=== PATIENT | male | born 1945 | race Caucasian/White ===

== ENCOUNTER 2018-02-10 12:11 | Inpatient (IN) ==
--- NOTE | 2018-02-10 13:13 | ED ---
HPI General Chief Complaint: Chest Pain Stated Complaint: chest pain/tightness Time Seen by Provider: 02/10/18 12:43 Source: patient and RN notes reviewed Mode of arrival: ambulatory Limitations: no limitations History of Present Illness HPI narrative: 72 year old male presents to the emergency department for evaluation of chest pain that started around 11am today. He went to [employer] and after he got home, he sat down for approximately 10 mins and started with midsternal chest pain, that he describes as sharp and tight without radiating. He states he took a nitro which took his pain away, but it has since returned, but more mild. Pain is currently a 3/10. His marketing traffic manager is Dr. Urbano. He states that he had a stress test done earlier this week. He states Dr. Urbano told him that he needed to have another cardiac catherization. He reports history of cardiac stent, DM, hyperlipidemia. He is on ASA 81 mg daily , no other anticoagulants. He did take his ASA this morning. He denies any fevers, chills, SOB, abdominal pain, nausea, vomiting, diarrhea, cough, congestion. Moderate severity. He states that he was recently started back on metoprolol and isosorbide. MD complaint: Reports chest pain STEMI Alert: No Onset (ago): hour(s) (2) Time: 11:00 Duration: constant and improved Onset: during rest Pain location: Reports substernal Severity: moderate Severity scale (1-10): 3 Quality: Reports tightness and sharp Pain radiation: Reports none Related Data Home Medications Medication Instructions Recorded Confirmed atorvastatin 80 mg PO DAILY 02/10/18 02/10/18 gabapentin 100 mg PO TID 02/10/18 02/10/18 lisinopril-hydrochlorothiazide 1 tab PO DAILY 02/10/18 02/10/18 omeprazole 20 mg PO DAILY 02/10/18 02/10/18 ascorbic acid (vitamin C) [Vitamin 500 mg PO DAILY 02/11/18 02/11/18 C] loratadine 10 mg PO HS 02/11/18 02/11/18 multivitamin [Multiple Vitamins] 1 tab PO DAILY 02/11/18 02/11/18 naproxen 500 mg PO BID PRN 02/11/18 02/11/18 nitroglycerin 0.4 mg SUBLINGUAL Q5-15M PRN 02/11/18 02/11/18 Previous Rx's Medication Instructions Recorded aspirin 81 mg PO DAILY #30 tab 02/11/18 isosorbide mononitrate 120 mg PO DAILY@0700 #60 tab 02/11/18 metformin 500 mg PO DAILY #0 tab 02/11/18 Allergies Allergy/AdvReac Type Severity Reaction Status Date / Time penicillin G Allergy Severe Hives Verified 02/10/18 12:35 Review of Systems ROS: all other systems reviewed are negative [facility] Medical History Medical History Diabetes (Acute) HBP (high blood pressure) (Acute) High cholesterol (Acute) Hx of cataract (Acute) Surgical History Surgical History History of heart artery stent (Acute) History of knee surgery (Acute) Social History Social History Substance History: No History of Abuse Second Hand Smoke Exposure: No Smoking Status: Former smoker Tobacco Type: Cigarettes How Often Do You Have a Drink Containing Alcohol: Monthly or less Recent Travel in [facility] within the Last 8 Weeks: Yes Recent Out of Country Travel within the Last 8 Weeks: No Immunization History Tetanus Immunization: <5 Years Exam Narrative Exam Narrative: GENERAL: Well-nourished, well-developed male patient, afebrile. SKIN: Focused skin assessment warm/dry. HEAD: Normocephalic. Atraumatic EYES: No scleral icterus. No injection or drainage. NECK: Supple, trachea midline. No JVD or lymphadenopathy. CARDIOVASCULAR: Regular rate and rhythm without murmurs, gallops, or rubs. Bilateral radial and pedal pulses are 2+ RESPIRATORY: Breath sounds equal bilaterally. No accessory muscle use. Lung sounds are clear to auscultation GASTROINTESTINAL: Abdomen soft, non-tender, nondistended. MUSCULOSKELETAL: No cyanosis, or edema. BACK: Nontender without obvious deformity. No CVA tenderness. Course Initial Documented Vital Signs Temperature 98.2 F 02/10/18 12:19 Pulse Rate 50 L 02/10/18 12:19 Respiratory Rate 20 02/10/18 12:19 Blood Pressure 175/77 H 02/10/18 12:19 Pulse Oximetry 95 02/10/18 12:19 Last Documented Vital Signs Temperature 97.8 F 02/11/18 08:00 Pulse Rate 48 L 02/11/18 08:00 Respiratory Rate 16 02/11/18 08:00 Blood Pressure 151/82 H 02/11/18 08:00 Pulse Oximetry 99 02/11/18 11:54 Medical Decision Making MDM Narrative Medical decision making narrative: 72 year old male presents to the emergency department for evaluation of chest pain that started today at 1100. EKG shows sinus bradycardia, HR 47, no acute ST changes. IV access is established. CBC, CMP, CK, Troponin, CK, magnesium, PTT, PT/INR, chest x-ray are ordered and pending. Patient is given ASA 81 mg PO, nitro 0.4 mg SL. CBC is unremarkable. CMP shows no acute abnormality. CK is 89. Troponin is less than 0.02. Magnesium is 2.0. PTT is 26.1. PT/INR is 10.4/1.0. Chest x- ray shows stable chest without evidence of acute process. Dr. Urbano, marketing traffic manager, is paged. Dr. Castillo is senior contracts manager. She agrees with admission for repeat Sudhakar and EKGs and consult to Dr. Urbano. Patient agrees to this. Medical Screen Exam Complete: Yes Emergency Medical Condition: Yes Differential Diagnosis Differential Diagnosis: ACS vs. angina vs. pneumonia vs. pneumothorax Medical Records Medical records reviewed: Yes I reviewed the patient's medical records. Lab Data Result diagrams: 02/11/18 03:24 02/11/18 03:24 Lab Results 02/10/18 02/10/18 02/10/18 Range/Units 12:50 14:00 14:00 WBC 6.0 (4.0-11.0) th/mm3 RBC 4.03 L (4.50-5.90) mil/mm3 Hgb 13.2 (13.0-17.0) gm/dL Hct 38.5 L (39.0-51.0) % MCV 95.7 (80.0-100.0) fL MCH 32.8 (27.0-34.0) pg MCHC 34.3 (32.0-36.0) % RDW 13.9 (11.6-17.2) % Plt Count 176 (150-450) th/mm3 MPV 11.0 (7.0-11.0) fL Neut % (Auto) 63.1 (16.0-70.0) % Lymph % (Auto) 21.7 (9.0-44.0) % Lipscomb % (Auto) 9.9 H (0.0-8.0) % Eos % (Auto) 4.7 H (0.0-4.0) % Baso % (Auto) 0.6 (0.0-2.0) % Neut # (Auto) 3.8 (1.8-7.7) th/mm3 Lymph # (Auto) 1.3 (1.0-4.8) th/mm3 Lipscomb # (Auto) 0.6 (0.0-0.9) th/mm3 Eos # (Auto) 0.3 (0.0-0.4) th/mm3 Baso # (Auto) 0.0 (0.0-0.2) th/mm3 WBC Differential . Differential Comment Auto diff final PT 10.4 (9.8-11.6) sec INR 1.0 Ratio APTT 26.1 (23.4-31.7) sec Sodium 140 (136-145) meq/L Potassium 3.9 (3.5-5.1) meq/L Chloride 106 (98-107) meq/L Carbon Dioxide 25.0 (21.0-32.0) meq/L Anion Gap 9 (5-15) meq/L BUN 19 H (7-18) mg/dL Creatinine 1.06 (0.60-1.30) mg/dL Estimated GFR 69 L (>89) mL/min POC Glucose (68-110) mg/dl Random Glucose 128 H (74-106) mg/dL Calcium 8.0 L (8.5-10.1) mg/dL Magnesium 2.0 (1.5-2.5) mg/dL Total Bilirubin 0.4 (0.2-1.0) mg/dL AST 20 (15-37) U/L ALT 28 (12-78) U/L Alkaline Phosphatase 87 (45-117) U/L Total Creatine Kinase 89 (39-308) U/L Troponin I Less than 0.02 L (0.02-0.05) ng/mL Total Protein 6.6 (6.4-8.2) g/dL Albumin 3.4 (3.4-5.0) g/dL 02/10/18 02/10/18 02/10/18 Range/Units 18:16 19:56 20:23 WBC (4.0-11.0) th/mm3 RBC (4.50-5.90) mil/mm3 Hgb (13.0-17.0) gm/dL Hct (39.0-51.0) % MCV (80.0-100.0) fL MCH (27.0-34.0) pg MCHC (32.0-36.0) % RDW (11.6-17.2) % Plt Count (150-450) th/mm3 MPV (7.0-11.0) fL Neut % (Auto) (16.0-70.0) % Lymph % (Auto) (9.0-44.0) % Lipscomb % (Auto) (0.0-8.0) % Eos % (Auto) (0.0-4.0) % Baso % (Auto) (0.0-2.0) % Neut # (Auto) (1.8-7.7) th/mm3 Lymph # (Auto) (1.0-4.8) th/mm3 Lipscomb # (Auto) (0.0-0.9) th/mm3 Eos # (Auto) (0.0-0.4) th/mm3 Baso # (Auto) (0.0-0.2) th/mm3 WBC Differential Differential Comment PT (9.8-11.6) sec INR Ratio APTT (23.4-31.7) sec Sodium (136-145) meq/L Potassium (3.5-5.1) meq/L Chloride (98-107) meq/L Carbon Dioxide (21.0-32.0) meq/L Anion Gap (5-15) meq/L BUN (7-18) mg/dL Creatinine (0.60-1.30) mg/dL Estimated GFR (>89) mL/min POC Glucose 93 142 H (68-110) mg/dl Random Glucose (74-106) mg/dL Calcium (8.5-10.1) mg/dL Magnesium (1.5-2.5) mg/dL Total Bilirubin (0.2-1.0) mg/dL AST (15-37) U/L ALT (12-78) U/L Alkaline Phosphatase (45-117) U/L Total Creatine Kinase 84 (39-308) U/L Troponin I Less than 0.02 L (0.02-0.05) ng/mL Total Protein (6.4-8.2) g/dL Albumin (3.4-5.0) g/dL 02/10/18 02/11/18 02/11/18 Range/Units 23:20 03:24 03:24 WBC 5.7 (4.0-11.0) th/mm3 RBC 3.98 L (4.50-5.90) mil/mm3 Hgb 12.8 L (13.0-17.0) gm/dL Hct 37.0 L (39.0-51.0) % MCV 93.0 (80.0-100.0) fL MCH 32.1 (27.0-34.0) pg MCHC 34.6 (32.0-36.0) % RDW 13.9 (11.6-17.2) % Plt Count 123 L D (150-450) th/mm3 MPV 11.2 H (7.0-11.0) fL Neut % (Auto) 62.0 (16.0-70.0) % Lymph % (Auto) 23.4 (9.0-44.0) % Lipscomb % (Auto) 9.4 H (0.0-8.0) % Eos % (Auto) 4.7 H (0.0-4.0) % Baso % (Auto) 0.5 (0.0-2.0) % Neut # (Auto) 3.5 (1.8-7.7) th/mm3 Lymph # (Auto) 1.3 (1.0-4.8) th/mm3 Lipscomb # (Auto) 0.5 (0.0-0.9) th/mm3 Eos # (Auto) 0.3 (0.0-0.4) th/mm3 Baso # (Auto) 0.0 (0.0-0.2) th/mm3 WBC Differential . Differential Comment Auto diff final PT (9.8-11.6) sec INR Ratio APTT (23.4-31.7) sec Sodium 142 (136-145) meq/L Potassium 4.0 (3.5-5.1) meq/L Chloride 107 (98-107) meq/L Carbon Dioxide 29.2 (21.0-32.0) meq/L Anion Gap 6 (5-15) meq/L BUN 16 (7-18) mg/dL Creatinine 0.96 (0.60-1.30) mg/dL Estimated GFR 77 L (>89) mL/min POC Glucose (68-110) mg/dl Random Glucose 106 (74-106) mg/dL Calcium 8.5 (8.5-10.1) mg/dL Magnesium (1.5-2.5) mg/dL Total Bilirubin (0.2-1.0) mg/dL AST (15-37) U/L ALT (12-78) U/L Alkaline Phosphatase (45-117) U/L Total Creatine Kinase 69 (39-308) U/L Troponin I Less than 0.02 L (0.02-0.05) ng/mL Total Protein (6.4-8.2) g/dL Albumin (3.4-5.0) g/dL 02/11/18 Range/Units 07:29 WBC (4.0-11.0) th/mm3 RBC (4.50-5.90) mil/mm3 Hgb (13.0-17.0) gm/dL Hct (39.0-51.0) % MCV (80.0-100.0) fL MCH (27.0-34.0) pg MCHC (32.0-36.0) % RDW (11.6-17.2) % Plt Count (150-450) th/mm3 MPV (7.0-11.0) fL Neut % (Auto) (16.0-70.0) % Lymph % (Auto) (9.0-44.0) % Lipscomb % (Auto) (0.0-8.0) % Eos % (Auto) (0.0-4.0) % Baso % (Auto) (0.0-2.0) % Neut # (Auto) (1.8-7.7) th/mm3 Lymph # (Auto) (1.0-4.8) th/mm3 Lipscomb # (Auto) (0.0-0.9) th/mm3 Eos # (Auto) (0.0-0.4) th/mm3 Baso # (Auto) (0.0-0.2) th/mm3 WBC Differential Differential Comment PT (9.8-11.6) sec INR Ratio APTT (23.4-31.7) sec Sodium (136-145) meq/L Potassium (3.5-5.1) meq/L Chloride (98-107) meq/L Carbon Dioxide (21.0-32.0) meq/L Anion Gap (5-15) meq/L BUN (7-18) mg/dL Creatinine (0.60-1.30) mg/dL Estimated GFR (>89) mL/min POC Glucose 115 H (68-110) mg/dl Random Glucose (74-106) mg/dL Calcium (8.5-10.1) mg/dL Magnesium (1.5-2.5) mg/dL Total Bilirubin (0.2-1.0) mg/dL AST (15-37) U/L ALT (12-78) U/L Alkaline Phosphatase (45-117) U/L Total Creatine Kinase (39-308) U/L Troponin I (0.02-0.05) ng/mL Total Protein (6.4-8.2) g/dL Albumin (3.4-5.0) g/dL Imaging Data Radiologist's impression: Chest X-Ray 02/10/18 12:51 CONCLUSION: Stable chest without evidence of acute process. Discharge Plan Discharge Disposition Patient Disposition: 30 Still Patient Discharge Condition Condition: Stable Discharge Order Discharge Orders: Discharge Order (Routine); Ordered 02/11/18 Ordered By: Lorraine Taylor Cardiology Clear for Discharge (Routine); Ordered 02/11/18 Ordered By: Eric Vazquez Discharge Details Anticipated Discharge Date: 02/11/18 Discharge Comment: Followup with Dr. Urbano at previously scheduled appt on . Followup with your PCP in 7-10 days, call for that appt. Diagnosis: Chest pain Physicians Team ED Provider: Guille Mariscal ED Midlevel Provider: Delores Salter Primary Care Provider: [facility] [place] Attending Provider: Andrea Guzman Other Providers: Wing Daisy Castillo Status ED Status: Left Department Discharge Information Discharge Date/Time: 02/10/18 17:00
--- NOTE | 2018-02-10 13:16 | XR ---
EXAM DATE: 02/10/2018 1:09 PM EST AGE/SEX: 72 years / Male INDICATIONS: Shortness of breath and chest pain. CLINICAL DATA: This is the patient's initial encounter. Patient reports that signs and symptoms have been present for 1 day and indicates a pain score of 4/10. MEDICAL/SURGICAL HISTORY: Diabetes. Hypertension. Coronary artery disease. . Cardiac stent. COMPARISON: [facility] [place], CHEST SINGLE AP, 02/05/2011. . FINDINGS: A single AP view of the chest demonstrates the lungs to be symmetrically aerated without evidence of mass, infiltrate or effusion. Calcified hilar lymph nodes are again noted. The cardiomediastinal str uctures are otherwise unremarkable. Osseous structures are intact. CONCLUSION: Stable chest without evidence of acute process. Electronically signed by: Eladio Kaufman MD 02/10/2018 1:15 PM EST
[2018-02-10 13:31] LABS: Baso % (Auto) 0.6 % (0.0-2.0); Eos # (Auto) 0.3 th/mm3 (0.0-0.4); Eos % (Auto) 4.7 % (0.0-4.0); Hematocrit 38.5 % (39.0-51.0); Hemoglobin 13.2 gm/dL (13.0-17.0); Lymph # (Auto) 1.3 th/mm3 (1.0-4.8); Lymph % (Auto) 21.7 % (9.0-44.0); Mean Corpuscular HGB Conc 34.3 % (32.0-36.0); Mean Corpuscular Hemoglobin 32.8 pg (27.0-34.0); Mean Corpuscular Volume 95.7 fL (80.0-100.0); Mono # (Auto) 0.6 th/mm3 (0.0-0.9); Mono % (Auto) 9.9 % (0.0-8.0); Neut # (Auto) 3.8 th/mm3 (1.8-7.7); Neut % (Auto) 63.1 % (16.0-70.0); Platelet Count 176 th/mm3 (150-450); Red Blood Count 4.03 mil/mm3 (4.50-5.90); Red Cell Distribution Width 13.9 % (11.6-17.2)
[2018-02-10 14:19] LABS: Activated Partial Thrombo Time 26.1 sec (23.4-31.7); Prothrombin Time 10.4 sec (9.8-11.6)
[2018-02-10 14:51] LABS: Alanine Aminotransferase 28 U/L (12-78); Albumin 3.4 g/dL (3.4-5.0); Anion Gap 9 meq/L (5-15); Aspartate Aminotransferase 20 U/L (15-37); Blood Urea Nitrogen 19 mg/dL (7-18); Chloride 106 meq/L (98-107); Glomerular Filtration Rate 69 mL/min (>89); Glucose,Random 128 mg/dL (74-106); Potassium 3.9 meq/L (3.5-5.1); Sodium 140 meq/L (136-145)
[2018-02-10 14:55] LABS: Alkaline Phosphatase 87 U/L (45-117); Total Protein 6.6 g/dL (6.4-8.2)
[2018-02-10 14:58] LABS: Creatine Kinase 89 U/L (39-308)
[2018-02-10] MEDS ORDERED: Iohexol 350 MG/ML 100 ML Vial (for Cath Lab) IVCONTRAST ONE (15:37)
[2018-02-10] MEDS ORDERED: Acetaminophen 325 MG Tablet PO PRN (16:19)
[2018-02-10] MEDS ORDERED: Dextrose 50% in Water 50 ML Vial IV.PUSH PRN (16:27)
--- NOTE | 2018-02-10 16:55 | P.HPIM ---
History of Present Illness Primary Care Physician: [facility] History of Present Illness: Pt is 72 yo with cad, hx stent in "90s", c in 2012 with occluded lad with collaterals. Pt says over past 4 weeks having more ant cp/epigastric pain mostly with exertion but also at rest. no n/v, no diaphoresis. Maybe mild sob. has seen Dr Urbano who did a treadmill test in office with no ekg changes. Pt was started on metoprolol and imdur. Pain can also subside with rest. sharp in nature but also some pressure. Today pain would not subside but later it did with ntg. He says Dr Urbano was planning [facility] if pain persisted. PMH cad. stent. lad occlusion with collaterals . last [facility] 2012 prostate ca. s/p external beam radiation dm 2 htn hyperlipidemia left knee arthroscopic surgery left inguinal hernia. then redo surgery. gerd sh: no etoh/tob fh: NC Diagnosis (1) Diabetes: (2) HTN (hypertension): (3) CAD (coronary artery disease): (4) Chest pain: Medications and Allergies Allergies Allergy/AdvReac Type Severity Reaction Status Date / Time penicillin G Allergy Severe Hives Verified 02/10/18 12:35 Home Medications Medication Instructions Recorded Confirmed Type aspirin 81 mg PO DAILY 02/10/18 02/10/18 History atorvastatin 80 mg PO DAILY 02/10/18 02/10/18 History gabapentin 100 mg PO TID 02/10/18 02/10/18 History isosorbide mononitrate 60 mg PO DAILY 02/10/18 02/10/18 History lisinopril-hydrochlorothiazide 1 tab PO DAILY 02/10/18 02/10/18 History metformin 500 mg PO DAILY 02/10/18 02/10/18 History metoprolol tartrate 50 mg PO DAILY 02/10/18 02/10/18 History omeprazole 20 mg PO DAILY 02/10/18 02/10/18 History Active Medications: Active Medications Acetaminophen (Tylenol) 650 mg PO Q4H PRN PRN Reason: Temp > 100.4 Al Hydroxide/Mg Hydroxide (Milk Of Magnesia Liq) 30 ml PO Q12H PRN PRN Reason: Mild Constipation Aspirin (Aspirin Chew) 81 mg PO DAILY MICHELE Atorvastatin Calcium (Lipitor) 80 mg PO DAILY MICHELE Dextrose (D50w Vial) 50 ml IV.PUSH UNSCH PRN PRN Reason: PER HYPOGLYCEMIA PROTOCOL Gabapentin (Neurontin) 100 mg PO TID MICHELE Glucagon (Glucagon Inj) 1 mg OTHER PRN PRN PRN Reason: for Hypoglycemia Protocol Insulin Aspart (Novolog Insulin Correctional Sugar Inj) 0 unit SQ ACHS MICHELE; Protocol Nitroglycerin (Nitro-Bid 2% Oint) 1 inch TOPICAL Q6HR MICHELE Non-Formulary Medication (Lisinopril-Hydrochlorothiazide [Lisinopril- Hydrochlorothiazide]) 1 tab PO DAILY MICHELE Non-Formulary Medication (Omeprazole [Omeprazole]) 20 mg PO DAILY MICHELE Ondansetron HCl (Zofran Inj) 4 mg IV.PUSH Q6H PRN PRN Reason: NAUSEA OR VOMITING Senna/Docusate Sodium (Lisette-Colace) 1 tab PO BID MICHELE Sodium Chloride (Ns Flush) 2 ml IV.FLUSH UNSCH PRN PRN Reason: FLUSH AFTER USING IV ACCESS Last Admin: 02/10/18 12:58 Dose: 2 ml Sodium Chloride (Ns Flush) 2 ml IV.FLUSH BID MICHELE Sodium Chloride (Ns Flush) 2 ml IV.FLUSH PRN PRN PRN Reason: FLUSH AFTER USING IV ACCESS Physical Exam Vital signs: Last Vital Signs Temp 97.9 F 02/10/18 15:20 Pulse 45 L 02/10/18 15:20 Resp 17 02/10/18 15:20 BP 160/81 H 02/10/18 15:20 Pulse Ox 98 02/10/18 15:20 Narrative: nad heart reg lung cta abd s/nt ext no edema Results Labs CBC & Chem 7: 02/10/18 12:50 02/10/18 14:00 Caprini VTE Risk Assessment Caprini VTE Risk Assessment: Moderate/High Risk (score >= 2) Caprini Risk Assessment Model: Point Value = 1 Point Value = 2 Point Value = 3 Point Value = 5 Age 41-60 Minor surgery BMI > 25 kg/m2 Swollen legs Varicose veins or History of unexplained or recurrent spontaneous Oral contraceptives or hormone replacement Sepsis (< 1 month) Serious lung disease, including pneumonia (< 1 month) Abnormal pulmonary function Acute myocardial infarction Congestive heart failure (< 1 month) History of inflammatory bowel disease Medical patient at bed rest Age 61-74 Arthroscopic surgery Major open surgery (> 45 min) Laparoscopic surgery (> 45 min) Malignancy Confined to bed (> 72 hours) Immobilizing plaster cast Central venous access Age >= 75 History of VTE Family history of VTE Factor V Leiden Prothrombin [id number] Lupus anticoagulant Anticardiolipin antibodies Elevated serum homocysteine Heparin-induced thrombocytopenia Other congenital or acquired thrombophilia Stroke (< 1 month) Elective arthroplasty Hip, pelvis, or leg fracture Acute spinal cord injury (< 1 month) Prophylaxis Regimen: Total Risk Factor Score Risk Level Prophylaxis Regimen 0-1 Low Early ambulation 2 Moderate Order ONE of the following: *Sequential Compression Device (SCD) *Heparin 5000 units SQ BID 3-4 Higher Order ONE of the following medications: *Heparin 5000 units SQ TID *Enoxaparin/Lovenox 40 mg SQ daily (WT < 150 kg, CrCl > 30 mL/min) *Enoxaparin/Lovenox 30 mg SQ daily (WT < 150 kg, CrCl > 10-29 mL/min) *Enoxaparin/Lovenox 30 mg SQ BID (WT < 150 kg, CrCl > 30 mL/min) AND/OR *Sequential Compression Device (SCD) 5 or more Highest Order ONE of the following medications: *Heparin 5000 units SQ TID (Preferred with Epidurals) *Enoxaparin/Lovenox 40 mg SQ daily (WT < 150 kg, CrCl > 30 mL/min) *Enoxaparin/Lovenox 30 mg SQ daily (WT < 150 kg, CrCl > 10-29 mL/min) *Enoxaparin/Lovenox 30 mg SQ BID (WT < 150 kg, CrCl > 30 mL/min) AND *Sequential Compression Device (SCD) Assessment and Plan Assessment (1) CAD (coronary artery disease): Code(s): I25.10 - Atherosclerotic heart disease of [place] coronary artery without angina pectoris Status: Acute (2) Chest pain: Code(s): R07.9 - Chest pain, unspecified Status: Acute (3) Diabetes: Code(s): E11.9 - Type 2 diabetes mellitus without complications Status: Acute (4) HTN (hypertension): Code(s): I10 - Essential (primary) hypertension Status: Acute Plan 1. cad presenting with chest pain. relieved with ntg. can worsen with exertion recent treadmill test with no ekg change. admit consult cardiology. plan for C tomorrow topical ntg paste prn morphine asa. bb. statin tele and ce's npo after MN for possible lhc. IVF. SSI for bg monitor. hold metformin. 2. dm2 3. htn 4. hx prostate ca _ (1) Chest pain Qualifiers: Chest pain type: unspecified Ischemic chest pain type: Qualified Code(s): R07.9 - Chest pain, unspecified
[2018-02-10] MEDS ORDERED: Morphine Sulfate Inj 2 MG/ML Vial IV.PUSH PRN (17:03)
[2018-02-10] MEDS: Insulin NovoLOG Aspart Correctional Sugar Inj SQ SCH ×2 (17:15→21:17)
--- NOTE | 2018-02-10 17:50 | P.CONCA ---
History of Present Illness Service: Cardiology Consult date: 02/10/18 Requesting Physician: Andrea Guzman Reason for Consult: Recurrent angina Primary Care Provider: Physician [facility] Chief Complaint: Chest pain History of Present Illness: He is a very nice 72 yo man, well known to Dr. Shankar Urbano for more than 20 years, presented to ED because of recurrent angina. Pt says over past 4 weeks having more ant cp/epigastric pain mostly with exertion but also at rest. no n/v, no diaphoresis. Maybe mild sob. has seen Dr Urbano who did a treadmill test in office with no ekg changes. Pt was started on metoprolol and imdur. Pain can also subside with rest. sharp in nature but also some pressure. Today pain would not subside but later it did with ntg. He says Dr Urbano was planning LHC if pain persisted. Significant medical hx 1. CAD, LHC in 2012 with occluded lad with collaterals. 2. DM 3. HTN 4. Prostate ca. s/p external beam radiation 5. hyperlipidemia 6. left knee arthroscopic surgery 7. left inguinal hernia. then redo surgery. 8. gerd Review of Systems All other systems reviewed negative except as stated in HPI PMFSH - History History Provided By: Patient - Medical History Medical History: Medical History (Last Updated 02/10/18 @ 12:39 by Paula Bermeo) Diabetes HBP (high blood pressure) High cholesterol Hx of cataract - Surgical History Surgical History: Surgical History (Last Updated 02/10/18 @ 12:39 by Paula Bermeo) History of heart artery stent History of knee surgery - Tobacco History Second Hand Smoke Exposure: No Tobacco Use In Past 30 Days: No Smoking Status: Former smoker Tobacco Type: Cigarettes - Alcohol History How Often Do You Have a Drink Containing Alcohol: Monthly or less - Substance Use History Substance History: No History of Abuse - Travel History Recent Travel in the [place] Within the Last 8 Weeks: No Recent Travel Out of the Country Within the Last 8 Weeks: No - Immunization History Tetanus Immunization: <5 Years Medications and Allergies Active Medications: Active Medications Acetaminophen (Tylenol) 650 mg PO Q4H PRN PRN Reason: Temp > 100.4 Al Hydroxide/Mg Hydroxide (Milk Of Magnesia Liq) 30 ml PO Q12H PRN PRN Reason: Mild Constipation Aspirin (Aspirin Chew) 81 mg PO DAILY [facility] Atorvastatin Calcium (Lipitor) 80 mg PO DAILY [facility] Dextrose (D50w Vial) 50 ml IV.PUSH UNSCH PRN PRN Reason: PER HYPOGLYCEMIA PROTOCOL Gabapentin (Neurontin) 100 mg PO TID [facility] Glucagon (Glucagon Inj) 1 mg OTHER PRN PRN PRN Reason: for Hypoglycemia Protocol Hydrochlorothiazide (Microzide) 12.5 mg PO DAILY [facility] Sodium Chloride (Ns Inj) 1,000 mls @ 84 mls/hr IV.CONT .[id number] [facility] Insulin Aspart (Novolog Insulin Correctional Sugar Inj) 0 unit SQ ACHS [facility]; Protocol Last Admin: 02/10/18 17:15 Dose: Not Given Lisinopril (Prinivil) 20 mg PO DAILY [facility] Metoprolol Tartrate (Lopressor) 25 mg PO BID [facility] Morphine Sulfate (Morphine Inj) 2 mg IV.PUSH Q3H PRN PRN Reason: pain 3-10 Nitroglycerin (Nitro-Bid 2% Oint) 1 inch TOPICAL Q6HR [facility] Ondansetron HCl (Zofran Inj) 4 mg IV.PUSH Q6H PRN PRN Reason: NAUSEA OR VOMITING Pantoprazole Sodium (Protonix) 20 mg PO DAILY [facility] Senna/Docusate Sodium (Lisette-Colace) 1 tab PO BID [facility] Sodium Chloride (Ns Flush) 2 ml IV.FLUSH BID [facility] Sodium Chloride (Ns Flush) 2 ml IV.FLUSH PRN PRN PRN Reason: FLUSH AFTER USING IV ACCESS Allergies Allergy/AdvReac Type Severity Reaction Status Date / Time penicillin G Allergy Severe Hives Verified 02/10/18 12:35 Home Medications Medication Instructions Recorded Confirmed Type aspirin 81 mg PO DAILY 02/10/18 02/10/18 History atorvastatin 80 mg PO DAILY 02/10/18 02/10/18 History gabapentin 100 mg PO TID 02/10/18 02/10/18 History isosorbide mononitrate 60 mg PO DAILY 02/10/18 02/10/18 History lisinopril-hydrochlorothiazide 1 tab PO DAILY 02/10/18 02/10/18 History metformin 500 mg PO DAILY 02/10/18 02/10/18 History metoprolol tartrate 50 mg PO DAILY 02/10/18 02/10/18 History omeprazole 20 mg PO DAILY 02/10/18 02/10/18 History Exam Vital signs: Vital Signs 02/10/18 12:19 02/10/18 12:51 02/10/18 15:20 Temperature 98.2 F 97.8 F 97.9 F Pulse Rate 50 L 46 L 45 L Respiratory Rate 20 18 17 Blood Pressure 175/77 H 161/75 H 160/81 H Pulse Oximetry 95 97 98 02/10/18 16:30 Temperature 97.8 F Pulse Rate 46 L Respiratory Rate 17 Blood Pressure 154/83 H Pulse Oximetry 97 Intake & Output 02/09/18 02/10/18 02/10/18 19:59 06:59 18:59 Weight 90.718 kg - Constitutional no acute distress - Routine HEENT Exam Head: Present: normocephalic, atraumatic Eye: Present: EOMI, PERRL ENT: Present: mucous membranes moist - Routine Neck Exam Present: supple, full ROM. Absent: JVD, carotid bruit - Routine Respiratory Exam Present: CTA bilaterally - Routine Cardiovascular Exam Present: RRR, S1, S2, murmur (1/6 LLSB systolic). Absent: gallop, rubs - Routine Abdominal Exam Present: soft, normoactive bowel sounds. Absent: tenderness, distended - Routine Extremities Exam Present: full ROM. Absent: edema - Routine Skin Exam Present: intact, dry, warm - Routine Neurological Exam Present: alert, oriented X3, CN II-XII intact Results 02/10/18 12:50 02/10/18 14:00 Cardiac Enzymes 02/10/18 Range/Units 14:00 AST 20 (15-37) U/L Troponin I Less than 0.02 L (0.02-0.05) ng/mL Coagulation 02/10/18 Range/Units 14:00 PT 10.4 (9.8-11.6) sec APTT 26.1 (23.4-31.7) sec CBC 02/10/18 Range/Units 12:50 WBC 6.0 (4.0-11.0) th/mm3 RBC 4.03 L (4.50-5.90) mil/mm3 Hgb 13.2 (13.0-17.0) gm/dL Hct 38.5 L (39.0-51.0) % Plt Count 176 (150-450) th/mm3 Neut # (Auto) 3.8 (1.8-7.7) th/mm3 Lymph # (Auto) 1.3 (1.0-4.8) th/mm3 [place] # (Auto) 0.6 (0.0-0.9) th/mm3 Eos # (Auto) 0.3 (0.0-0.4) th/mm3 Baso # (Auto) 0.0 (0.0-0.2) th/mm3 Comprehensive Metabolic Panel 02/10/18 Range/Units 14:00 Sodium 140 (136-145) meq/L Potassium 3.9 (3.5-5.1) meq/L Chloride 106 (98-107) meq/L Carbon Dioxide 25.0 (21.0-32.0) meq/L BUN 19 H (7-18) mg/dL Creatinine 1.06 (0.60-1.30) mg/dL Calcium 8.0 L (8.5-10.1) mg/dL AST 20 (15-37) U/L ALT 28 (12-78) U/L Alkaline Phosphatase 87 (45-117) U/L Total Protein 6.6 (6.4-8.2) g/dL Albumin 3.4 (3.4-5.0) g/dL Intake and Output 02/10/18 02/10/18 02/10/18 06:59 14:59 22:59 Other: Weight 90.718 kg Patient Weight 02/11/18 06:59 Weight 90.718 kg - Imaging and Cardiology Imaging: Impressions Chest X-Ray 02/10/18 12:51 CONCLUSION: Stable chest without evidence of acute process. Assessment and Plan - Assessment (1) Diabetes Code(s): E11.9 - Type 2 diabetes mellitus without complications Status: Acute (2) HTN (hypertension) Code(s): I10 - Essential (primary) hypertension Status: Acute (3) CAD (coronary artery disease) Code(s): I25.10 - Atherosclerotic heart disease of [place] coronary artery without angina pectoris Status: Acute (4) Chest pain Code(s): R07.9 - Chest pain, unspecified Status: Acute - Plan 1. CAD, unstable angina, recurrent angina Recent noninvasive stress test negative Consider [facility] in AM as plan 2. DM, management per hospitalist. 3. HTN, management per hospitalist 4. Prostate ca. s/p external beam radiation 5. hyperlipidemia, management per hospitalist 6. left knee arthroscopic surgery 7. left inguinal hernia. then redo surgery. 8. gerd [facility] cardiology Dr. Vazquez or Dr. Goldberg will resume care of this patient in . (4) Chest pain Qualifiers: Chest pain type: unspecified Qualified Code(s): R07.9 - Chest pain, unspecified
[2018-02-10] MEDS: Gabapentin 100 MG Capsule PO SCH (17:51)
[2018-02-10 20:46] LABS: Creatine Kinase 84 U/L (39-308)
[2018-02-10] MEDS: Senna/Docusate Sodium 8.6/50 MG Tablet PO SCH (21:16)
[2018-02-10] MEDS: Metoprolol Tartrate 25 MG Tablet PO SCH (21:17)
[2018-02-10] MEDS ORDERED: Sod Chloride 0.9% Inj 1,000 ML IV.CONT SCH (23:00)
[2018-02-10 23:54] LABS: Creatine Kinase 69 U/L (39-308)
[2018-02-11 04:37] LABS: Baso % (Auto) 0.5 % (0.0-2.0); Eos # (Auto) 0.3 th/mm3 (0.0-0.4); Eos % (Auto) 4.7 % (0.0-4.0); Hemoglobin 12.8 gm/dL (13.0-17.0); Lymph # (Auto) 1.3 th/mm3 (1.0-4.8); Lymph % (Auto) 23.4 % (9.0-44.0); Mean Corpuscular HGB Conc 34.6 % (32.0-36.0); Mean Corpuscular Hemoglobin 32.1 pg (27.0-34.0); Mean Platelet Volume 11.2 fL (7.0-11.0); Mono # (Auto) 0.5 th/mm3 (0.0-0.9); Mono % (Auto) 9.4 % (0.0-8.0); Neut # (Auto) 3.5 th/mm3 (1.8-7.7); Platelet Count 123 th/mm3 (150-450); Red Blood Count 3.98 mil/mm3 (4.50-5.90); Red Cell Distribution Width 13.9 % (11.6-17.2); White Blood Count 5.7 th/mm3 (4.0-11.0)
[2018-02-11 04:58] LABS: Calcium 8.5 mg/dL (8.5-10.1); Carbon Dioxide 29.2 meq/L (21.0-32.0)
--- NOTE | 2018-02-11 07:54 | P.PNCA ---
Subjective Interval history: No further chest pain overnight. Has been having increasing frequency of chest pain lately. Seem to be exacerbated whenever he tried to carry groceries, pain lasted for a few minutes. Chest pain as a sharp heaviness reminiscent of prior to last time he needed a stent. Had a treadmill stress test with Dr. Urbano on 02/04 with no EKG changes, Imdur added, which patient reports has not helped. Troponins normal. Medications and Allergies Active Medications: Active Medications Acetaminophen (Tylenol) 650 mg PO Q4H PRN PRN Reason: Temp > 100.4 Al Hydroxide/Mg Hydroxide (Milk Of Magnesia Liq) 30 ml PO Q12H PRN PRN Reason: Mild Constipation Aspirin (Aspirin Chew) 81 mg PO DAILY [facility] Atorvastatin Calcium (Lipitor) 80 mg PO DAILY [facility] Dextrose (D50w Vial) 50 ml IV.PUSH UNSCH PRN PRN Reason: PER HYPOGLYCEMIA PROTOCOL Gabapentin (Neurontin) 100 mg PO TID [facility] Last Admin: 02/10/18 17:51 Dose: 100 mg Glucagon (Glucagon Inj) 1 mg OTHER PRN PRN PRN Reason: for Hypoglycemia Protocol Hydrochlorothiazide (Microzide) 12.5 mg PO DAILY [facility] Sodium Chloride (Ns Inj) 1,000 mls @ 84 mls/hr IV.CONT .[id number] [facility] Last Admin: 02/10/18 23:19 Dose: 84 mls/hr Insulin Aspart (Novolog Insulin Correctional Sugar Inj) 0 unit SQ ACHS [facility]; Protocol Last Admin: 02/10/18 21:17 Dose: Not Given Lisinopril (Prinivil) 20 mg PO DAILY [facility] Metoprolol Tartrate (Lopressor) 25 mg PO BID [facility] Last Admin: 02/10/18 21:17 Dose: Not Given Morphine Sulfate (Morphine Inj) 2 mg IV.PUSH Q3H PRN PRN Reason: pain 3-10 Nitroglycerin (Nitro-Bid 2% Oint) 1 inch TOPICAL Q6HR [facility] Last Admin: 02/11/18 06:00 Dose: 1 inch Ondansetron HCl (Zofran Inj) 4 mg IV.PUSH Q6H PRN PRN Reason: NAUSEA OR VOMITING Pantoprazole Sodium (Protonix) 20 mg PO DAILY [facility] Senna/Docusate Sodium (Lisette-Colace) 1 tab PO BID [facility] Last Admin: 02/10/18 21:16 Dose: 1 tab Sodium Chloride (Ns Flush) 2 ml IV.FLUSH BID [facility] Last Admin: 02/10/18 21:16 Dose: 2 ml Sodium Chloride (Ns Flush) 2 ml IV.FLUSH PRN PRN PRN Reason: FLUSH AFTER USING IV ACCESS Allergies Allergy/AdvReac Type Severity Reaction Status Date / Time penicillin G Allergy Severe Hives Verified 02/10/18 12:35 Home Medications Medication Instructions Recorded Confirmed Type aspirin 81 mg PO DAILY 02/10/18 02/10/18 History atorvastatin 80 mg PO DAILY 02/10/18 02/10/18 History gabapentin 100 mg PO TID 02/10/18 02/10/18 History isosorbide mononitrate 60 mg PO DAILY 02/10/18 02/10/18 History lisinopril-hydrochlorothiazide 1 tab PO DAILY 02/10/18 02/10/18 History metformin 500 mg PO DAILY 02/10/18 02/10/18 History metoprolol tartrate 50 mg PO DAILY 02/10/18 02/10/18 History omeprazole 20 mg PO DAILY 02/10/18 02/10/18 History Physical Exam Vital signs: Vital Signs 02/10/18 12:19 02/10/18 12:51 02/10/18 15:20 Temperature 98.2 F 97.8 F 97.9 F Pulse Rate 50 L 46 L 45 L Respiratory Rate 20 18 17 Blood Pressure 175/77 H 161/75 H 160/81 H Pulse Oximetry 95 97 98 02/10/18 16:30 02/10/18 20:00 02/11/18 00:00 Temperature 97.8 F 98.3 F 97.6 F Pulse Rate 46 L 47 L 41 L Respiratory Rate 17 18 18 Blood Pressure 154/83 H 108/62 120/76 Pulse Oximetry 97 97 93 L 02/11/18 04:00 02/11/18 06:18 Temperature 97.4 F L Pulse Rate 47 L Respiratory Rate 19 Blood Pressure 127/71 Pulse Oximetry 94 L 94 L Intake & Output 02/10/18 02/11/18 02/11/18 18:59 06:59 18:59 Intake Total 240 / 240 Balance 240 / 240 Weight 199 lb 15.701 oz Intake: Oral 240 / 240 Other: # Voids 0 2 Weight On Admission 199 lb 15.701 oz Narrative: GENERAL: Well-developed well-nourished. In no acute distress. NECK: No carotid bruits. No JVD. CARDIOVASCULAR: Regular rate and rhythm. No murmur appreciated. RESPIRATORY: No accessory muscle use. Clear to auscultation. Breath sounds equal bilaterally. MUSCULOSKELETAL: No clubbing or cyanosis. No edema. NEUROLOGICAL: Awake and alert. Normal speech. Results 02/11/18 03:24 02/11/18 03:24 Cardiac Enzymes 02/10/18 02/10/18 02/10/18 Range/Units 14:00 19:56 23:20 AST 20 (15-37) U/L Troponin I Less than 0.02 L Less than 0.02 L Less than 0.02 L (0.02-0.05) ng/mL Coagulation 02/10/18 Range/Units 14:00 PT 10.4 (9.8-11.6) sec APTT 26.1 (23.4-31.7) sec CBC 02/10/18 02/11/18 Range/Units 12:50 03:24 WBC 6.0 5.7 (4.0-11.0) th/mm3 RBC 4.03 L 3.98 L (4.50-5.90) mil/mm3 Hgb 13.2 12.8 L (13.0-17.0) gm/dL Hct 38.5 L 37.0 L (39.0-51.0) % Plt Count 176 123 L D (150-450) th/mm3 Neut # (Auto) 3.8 3.5 (1.8-7.7) th/mm3 Lymph # (Auto) 1.3 1.3 (1.0-4.8) th/mm3 [place] # (Auto) 0.6 0.5 (0.0-0.9) th/mm3 Eos # (Auto) 0.3 0.3 (0.0-0.4) th/mm3 Baso # (Auto) 0.0 0.0 (0.0-0.2) th/mm3 Comprehensive Metabolic Panel 02/10/18 02/11/18 Range/Units 14:00 03:24 Sodium 140 142 (136-145) meq/L Potassium 3.9 4.0 (3.5-5.1) meq/L Chloride 106 107 (98-107) meq/L Carbon Dioxide 25.0 29.2 (21.0-32.0) meq/L BUN 19 H 16 (7-18) mg/dL Creatinine 1.06 0.96 (0.60-1.30) mg/dL Calcium 8.0 L 8.5 (8.5-10.1) mg/dL AST 20 (15-37) U/L ALT 28 (12-78) U/L Alkaline Phosphatase 87 (45-117) U/L Total Protein 6.6 (6.4-8.2) g/dL Albumin 3.4 (3.4-5.0) g/dL Intake and Output 02/10/18 02/11/18 02/11/18 22:59 06:59 14:59 Intake Total 240 / 240 Balance 240 / 240 Intake: Oral 240 / 240 Other: # Voids 0 2 Weight 199 lb 15.701 oz Weight On Admission 199 lb 15.701 oz - Imaging and Cardiology Imaging: Impressions Chest X-Ray 02/10/18 12:51 CONCLUSION: Stable chest without evidence of acute process. Assessment and Plan - Plan 72-year-old male with past medical history of CAD with totally occluded proximal LAD by cath 2007 with distal LAD collaterals from RCA on cath 2012 CAD with unstable angina: N.p.o. for [facility] today. Continue aspirin, statin, beta- cici, KARIN inhibitor. Continue Nitropaste for now. Discussed Condition With: Patient, RN, Dr. Vazquez
[2018-02-11] MEDS: Senna/Docusate Sodium 8.6/50 MG Tablet PO SCH (08:09)
[2018-02-11] MEDS: Metoprolol Tartrate 25 MG Tablet PO SCH (08:10)
[2018-02-11] MEDS: Gabapentin 100 MG Capsule PO SCH (08:10)
[2018-02-11] MEDS: Insulin NovoLOG Aspart Correctional Sugar Inj SQ SCH (08:43)
[2018-02-11] MEDS ORDERED: Pantoprazole Sodium 20 MG DR Tablet PO SCH (09:00)
[2018-02-11] MEDS ORDERED: Non-Formulary Drug (Lisinopril-Hydrochlorothiazide [Lisinopril-Hydrochlorothiazide] 1 TAB) PO SCH (09:00)
[2018-02-11] MEDS ORDERED: Lisinopril 20 MG Tablet PO SCH (09:00)
[2018-02-11] MEDS ORDERED: Heparin/NS PF Inj 1,000 ML ONE (10:06)
[2018-02-11] MEDS ORDERED: Lidocaine PF 1% Inj 30 ML Vial ONE (10:06)
[2018-02-11] MEDS ORDERED: Heparin 10,000 UNITS/10 ML Vial (for IV use) ONE (10:07)
[2018-02-11] MEDS ORDERED: fentaNYL Citrate Inj 100 MCG/2 ML Ampul ONE (10:07)
--- NOTE | 2018-02-11 10:49 | CATHPROC ---
Manufacturers' Inventory HIS Report Study Information Study Number Admission Scheduled Start Study Start [id number] Feb 10 2018 3:36PM 02/11/2018 Feb 11 2018 9:58AM [place] Service Cardiac Pacer/ICD Admit Source Facility Department Emergency department [facility] - Scientific Research Manager Physician and Clinical Staff Initial Eric [place] Card Processing Clerk Lorraine Chatterjee,RONEL Recorder Kim Leon RCIS TECH2 Scrub [place] RCIS(BS) Procedures Performed Procedure Location (Site) Vessel Name Coronary Angiograms LCA Left Coronary Coronary Angiograms RCA Right Coronary L Heart Cath Equipment Time Primer Press Operator Description Size Mfg Part Number Used/Scraped TRANSDUCER, TRUWAVE [id number] 10:04 CLEMENS GARCIA * Used W/STOCKCOCK *[id number] *[id number] [id number] *[id number] 10:04 [employer]Helper BLANKET,WARM AIR CCL * Used *[id number] 10:04 [employer]Helper PACK, CCL CUSTOM * Used *[id number] 10:04 [employer]Helper SUPPORT, ARTERIAL ADULT 16070 *[id number] Used BAND, RADIAL COMPRESSION TR [id number] 10:23 [employer] 24CM Used SHORT 24 *[id number] SHEATH, FR6 RADIAL PRELUDE 10:04 [employer] FR 6 [id number] Used EASE 11CM [id number] 10:04 [employer] WIRE, EXCHANGE 260CM 3MMJ 260CM Used *[id number] 10:04 NAMIC MANIFOLD, 4 PORT * Used *[id number] 10:04 NYCOMED OMNIPAQUE, 350 MG, 150ML 150ML [id number] Used History: Current Medications Medication Dosage/Unit Route Frequency Last Date/Time Taken LIPITOR LOPRESSOR Imdur ASA HCTZ History: Allergies Allergy Reaction penicillin G Hives History: Risk Factors Family History of Hypertension Dyslipidemia Previous [place] Previous Heart Failure Premature CAD Yes Yes No No No Prior Valve Prior PCI Prior PCIDate Prior CABG Surgery No Yes 09/07/1997 No Cerebrovascular Peripheral Artery Chronic Lung On Dialysis Diabetes Diabetes Therapy Disease Disease Disease No No No No Yes Oral History: Stress Tests Stress or Imaging Studies Performed Yes Standard Exercise Stress Stress Test Result Stress Test Ischemia Risk/Extent Test Yes Positive Intermediate Stress Echo No Stress Test SPECT No Stress Test CMR No Cardiac CTA Coronary Calcium Score No No History: Other Disease Selection Items Cancer Gerd History: Other Current Smoker Method Quit Packs a Day Years Used Pack Years No Cigarettes 40 Years Ago 2 10 20 Labs Hgb (g/dl) Hct (%) WBC (l/cumm) Platelets (thousands) 11.60-17.00 35.00-51.00 4.00-11.00 150.00-450.00 12.8 37 5.7 123 Glucose (mg/dl) BUN (mg/dl) Creatinine (mg/dl) BUN:Creatinine (1:x) 74.00-106.00 7.00-18.00 0.50-1.30 10.00-20.00 106 16 0.9 17.8 Na (meq/l) K (meq/l) 136.00-145.00 3.50-5.10 142 4 INR (PTT:PT) 0.90-1.10 1 Troponin I (ng/ml) CPK (u/l) 0.02-0.05 26.00-308.00 0.02 69 Medication Medication Total Dose (Bolus/Oral) Medication Total Dosage/Unit 1% XYLOCAINE 5 mL FENTANYL 50 mcg HEPARIN 5000 units NTG (IC) 200 mcg VERSED 2 mg Medications (Bolus/Oral) Medication Time Given Dosage/Unit Administered By Reason VERSED 02/11/2018 10:20:33 AM 2 mg Lorraine Chatterjee 2 mg VERSED given in lab by Lorraine Chatterjee RN in Left Antecubital via Peripheral IV. Ordered by Eric Tomas. FENTANYL 02/11/2018 10:21:33 AM 50 mcg Lorraine Chatterjee 50 mcg FENTANYL given in lab by Lorraine Chatterjee RN in Left Antecubital via Peripheral IV. Ordered by Eric Vazquez. 1% XYLOCAINE 02/11/2018 10:23:44 AM 5 mL Eric Vazquez 5 mL 1% XYLOCAINE given in lab by Eric Vazquez in Right Radial via Subcutaneous. Ordered by Eric Vazquez. HEPARIN 02/11/2018 10:25:35 AM 5000 units Lorraine Chatterjee 5000 units HEPARIN given in lab by Lorraine Chatterjee, RONEL in Left Antecubital via Peripheral IV. Ordered by Eric Vazquez. NTG (IC) 02/11/2018 10:25:45 AM 200 mcg Eric Vazquez 200 mcg NTG (IC) given in lab by Eric Vazquez in Right Radial via Intra-arterial. Ordered by Eric Vazquez. Medication (Drip) Medication Time Given Dosage/Unit Concentration/Unit Diluent (ml) Solution IV Solutions 02/11/2018 10:05:11 AM 0 mL (IV) 500 NaCl .9 Patient arrived on IV Solutions in Left Antecubital via Peripheral IV. Pump/Drip Flow = 20 ml/hr usin g NaCl .9. Initial Case Assessment Cardiovascular HR Rhythm NIBP Chest Pain 50 sb 188/92 0 Circulatory - Right Pulses Dorsalis Pedis Femoral Radial 2 2 2 Scale (0,1,2,3,4,d) Scale (0,1,2,3,4,d) Neurological State Oriented to time-place- Alert person Respiration - General Respiration Rate SpO2 (%) (B/min) 13 96 Final Case Assessment Cardiovascular HR Rhythm NIBP Chest Pain 48 sb 134/74 0 Circulatory - Right Pulses Dorsalis Pedis Femoral Radial 2 2 2 Scale (0,1,2,3,4,d) Scale (0,1,2,3,4,d) Neurological State Oriented to time-place- Alert Moves all extremities person Respiration - General Respiration Rate SpO2 (%) (B/min) 12 91 Chronological Log Time Study Chronological Log 9:58:46 Patient arrived via Bed. 9:58:46 Patient Name, D.O.B, / Armband Verified By R.N. 9:58:49 Consent signed by the physician and the patient and verified by the Scientific Research Manager staff. 9:58:49 Pre-op and post- op instructions given; patient acknowledges understanding of instructions. 9:58:50 Verbal Stimulation=2 Physical Stimulation=2 Airway=2 Respiration=2 TOTAL=8. (0=absent, 1=broderick ited, 2=present) 9:58:52 Presedation assessment performed by Scientific Research Manager RN. 9:58:53 Allens test performed on the right radial and ulnar artery. 9:58:55 Patient has been NPO for Less than 6Hrs. 9:58:56 Skin Breakdown-none 9:58:59 Nabor Prominences Protected Vitals capture started with the following parameters, Patient=Adult, Interval=5 min, Initial Pr vkokxz=249 mmHg, 10:02:30 Deflation Rate=5 mmHg, Cuff placed on Left Arm 10:03:42 Reference ECG taken 10:03:59 HR=51 bpm, GHNX=907/92 mmhg, SpO2=95.0 %, Resp=14 B/min, Pain=0, Kinney=2 10:05:04 A # 20 IV was noted in the Antecubital (left). Grade = 0 10:05:11 Patient arrived on IV Solutions in Left Antecubital via Peripheral IV. Pump/Drip Flow = 20 ml/hr using NaCl .9. 10:05:27 History and physical on the chart or being dictated. Assessment: Initial Case, HR=50 BPM, Rhythm=sb, WGAL=974/92 mmhg, Chest Pain=0 Right Pulses: Wilmer Ped=2, Femoral=2, Radial=2 10:05:30 Neurological: State=Alert, Ox3 Respiration: Resp=13 B/min, SpO2=96 % 10:06:05 Right groin and right wrist prepped with 2% chlorhexidine, and draped after a 3 min. waitin g time. 10:08:58 HR=49 bpm, TSUH=132/93 mmhg, SpO2=97.0 %, Resp=15 B/min 10:10:46 MD paged 10:11:56 MD responded 10:13:16 HR=48 bpm, SCPU=272/87 mmhg, SpO2=96.0 %, Resp=13 B/min, Pain=0, Kinney=2 10:16:31 Pressure channel 1 zeroed. 10:18:15 HR=48 bpm, ROMO=908/90 mmhg, SpO2=95.0 %, Resp=13 B/min 10:19:53 MD arrived. Time Out. Correct patient, correct procedure, correct physician, labs, allergies, and equipment verified with construction laborer 10:20:05 team present. Fire risk assesment completed (see hard stop sheet for coding). Time Out Conc urred by MD and individual staff in procedure. 10:20:33 2 mg VERSED given in lab by Lorraine Chatterjee, RONEL in Left Antecubital via Peripheral IV. Orde red by Eric Vazquez. 10:21:33 50 mcg FENTANYL given in lab by Lorraine Chatterjee, RONEL in Left Antecubital via Peripheral IV. Ordered by Eric Vazquez. 10:23:14 HR=47 bpm, TNZZ=420/81 mmhg, SpO2=93.0 %, Resp=4 B/min 10:23:43 Case Start 10::44 5 mL 1% XYLOCAINE given in lab by Eric Vazquez in Right Radial via Subcutaneous. Ordered by Eric Vazquez. 10:24:21 Access site was Right Radial Artery . A SHEATH, FR6 RADIAL PRELUDE EASE 11CM FR 6 was advanced into the Radial (right) using the Perc utaneous 10:24:29 technique. 10:24:55 In the Radial (right) the SHEATH, FR6 RADIAL PRELUDE EASE 11CM FR [address] by Eric Vazquez. 5000 units HEPARIN given in lab by Lorraine Chatterjee, RONEL in Left Antecubital via Peripheral IV. O rdered by George 10:25:35 Eric. 10:25:45 200 mcg NTG (IC) given in lab by Eric Vazquez in Right Radial via Intra-arterial. Ordered by Eric Vazquez. A JR 5.0 INFINITI CATHETER FR 5 was advanced over a wire. OMNIPAQUE, 350 MG, 150ML 150ML was us ed for 10:26:18 injections. Recorded Pressure: Ao, HR=47, Condition=Condition 1 10:26:33 (Aorta) Ao 117/65/87 10:27:32 The RCA was injected and visualized at various angles. OMNIPAQUE, 350 MG, 150ML 150ML used . After removing the current catheter a JL 3.5 INFINITI CATHETER FR 5 was advanced over a WIRE, EXCHANGE 260CM 10:28:09 3MMJ 260CM. 10:28:13 HR=46 bpm, CRWK=033/77 mmhg, SpO2=90 %, Resp=12 B/min 10:30:03 The LCA was injected and visualized at various angles. OMNIPAQUE, 350 MG, 150ML 150ML use d. 10:33:08 HR=49 bpm, NDIX=629/73 mmhg, SpO2=93.0 %, Resp=12 B/min 10:37:08 Catheter was removed 10:37:34 Case End (Physician broke scrub) 10:38:11 HR=48 bpm, IAMU=602/74 mmhg, SpO2=91.0 %, Resp=12 B/min Radial Compression Device Used. 15 mLs of air placed in BAND, RADIAL COMPRESSION TR SHORT 24 2 4CM. Affected 10:39:35 hand 92 % O2 saturation. 10:41:49 Vitals capture stopped. Assessment: Final Case, HR=48 BPM, Rhythm=sb, ALBE=219/74 mmhg, Chest Pain=0 Right Pulses: Wilmer Ped=2, Femoral=2, Radial=2 10:43:37 Neurological: State=Alert, Ox3, GRIGSBY Respiration: Resp=12 B/min, SpO2=91 % 10:44:30 No case complications noted. 10:44:31 Cine recording checked. 10:44:32 Bedside Report will be given. 10:44:38 A Left Heart Cath was performed. 10:44:43 Patient moved to bed 10:46:29 Patient transported to DOCU End Study - Contrast Media Used In Study Contrast Total Opened (mL) Total Used (mL) Total Wasted (mL) Omnipaque 65 65 0 End Study - Maximum Contrast Load Max Contrast Load (mL) 502.5 End Study - Radiation Exposure Fluoro Time Fluoro Dose (mGy) Cine Dose (uGym2) (minutes) 2.4 2142 0330 End Study - Sheaths Sheaths Pulled By Sheath Hold Time (min) [place] End Study - Patient Disposition Complications Transferred To Interventional Outcome No Telemetry Bed No attempt made
--- NOTE | 2018-02-11 10:51 | P.PCN ---
Date of procedure: 02/11/18 Pre-op diagnosis: Unstable angina Procedure: pusher operator: Titi Vazquez MD Procedures performed: 1. Fluoroscopy with interpretation 2. Coronary angiography Methods: Risks, benefits, and alternatives were discussed with the patient. Patient understood and consented to the procedure. Patient was brought into the cardiac catheterization lab and placed on the catheterization table. The patient's right wrist was prepped and draped in a sterile fashion. The right wrist was anesthetized with 1% lidocaine. Right wrist was cannulated and a 6 Cymraes 11 cm sheath was placed without difficulty. 200 mcg of intra-arterial nitroglycerin was administered and 5000 units of intravenous heparin. Coronary angiography: The left main coronary artery was selectively engaged with a 5 Cymraes JL 3.5 Minesh catheter. The right coronary circulation was selectively engaged with a 5 Cymraes JR 5 Minesh catheter. 1. Left main coronary artery is widely patent 2. Left anterior descending coronary artery in the very proximal segment has minor luminal irregularities. There is a large diagonal branch which has minor luminal irregularities. Just beyond the bifurcation of the diagonal branch in the mid left anterior descending coronary artery, there is a chronic total occlusion. There is JUDI II flow within the left anterior descending coronary artery distally from left to left collateralization. There is competitive flow in the distal left anterior descending coronary artery secondary to right to left collaterals. 3. Left circumflex is a codominant vessel giving rise to a left-sided posterior descending branch. Left circumflex gives rise to the obtuse marginal branch which has minor luminal irregularities. 4. The right coronary artery is a codominant vessel gives rise to the posterior descending branch. There is minor luminal irregularities in the right coronary artery Conclusions: 1. 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 In addition, this chronic occlusion is been there for some time. We will titrate his nitrate therapy to 120 mg daily. Patient can be discharged later today. If the patient has continued ongoing symptoms, we would consider surgical referral for minimally invasive left internal mammary to left anterior descending coronary artery single vessel bypass. Patient will follow up with Dr. Urbano in the outpatient setting.
--- NOTE | 2018-02-11 13:56 | P.PNIM ---
Subjective Interval history: Pt had LHC this morning with chronically occluded LAD Pt is to be medically managed Cardiology has cleared him for discharge on an increased dose of Imdur. Physical Exam Vital signs: Last Vital Signs Temp 97.8 F 02/11/18 08:00 Pulse 48 L 02/11/18 08:00 Resp 16 02/11/18 08:00 BP 151/82 H 02/11/18 08:00 Pulse Ox 99 02/11/18 11:54 Narrative: nad heart reg lung cta abd s/nt ext no edema Results Labs CBC & Chem 7: 02/11/18 03:24 02/11/18 03:24 Imaging Chest X-Ray 02/10/18 12:51 CONCLUSION: Stable chest without evidence of acute process. Assessment and Plan Assessment (1) Diabetes: Code(s): E11.9 - Type 2 diabetes mellitus without complications Status: Acute (2) HTN (hypertension): Code(s): I10 - Essential (primary) hypertension Status: Acute (3) CAD (coronary artery disease): Code(s): I25.10 - Atherosclerotic heart disease of [place] coronary artery without angina pectoris Status: Acute (4) Chest pain: Code(s): R07.9 - Chest pain, unspecified Status: Acute Plan CAD presenting with chest pain HTN - The pt is a 72 y/o male with CAD with totally occluded proximal LAD by cath 2007 with distal LAD collaterals from RCA on cath in 2012 - He presented to the ED at [facility] on 02/10/18 with complaints of exertional chest relieved with NTG - He had a recent treadmill test with no ekg change. - Cardiology was consulted at admission. - Pt underwent LHC (02/11/18) --> Chronically occluded mid left anterior descending coronary artery with collateralization - Cardiology has recommended to titrate his nitrate therapy to 120 mg daily. If the patient has continued ongoing symptoms, Cardiology would consider surgical referral for minimally invasive left internal mammary to left anterior descending coronary artery single vessel bypass. - Patient will follow up with Dr. Urbano in the outpatient setting. - Cont. ASA - The pts HR has been consistently in the 40's. Discussed the case with Dr. Vazquez and we will hold his Metoprolol at dsicharge. - Cont. statin - Pt will need to followup with his [employer], Dr. Urbano, on 02/18/18 at previously scheduled appt. - Pt will need to followup with PCP, in the next 7-10 days. Diabetes Mellitus - Pt received SSI for bg monitor - Metformin. held. He will resume his Metformin on Sunday02/13/18. Progress Note: Quality VTE Deep Vein Thrombosis/Pulmonary Embolism Present on Admission: No _ (1) Diabetes Qualifiers: Chronic kidney disease stage: Diabetes mellitus complication detail: Diabetes mellitus complication status: Diabetes mellitus middle or intermediate [employer] principal insulin use : Diabetes mellitus macular edema: Diabetes mellitus type: Diabetic retinopathy severity: Laterality: Proliferative retinopathy type: (2) CAD (coronary artery disease) Qualifiers: Associated angina: Coronary Disease-Associated Artery/Lesion type: [place] vs. transplanted heart: (3) Chest pain Qualifiers: Chest pain type: unspecified Ischemic chest pain type: Qualified Code(s): R07.9 - Chest pain, unspecified (4) HTN (hypertension) Qualifiers: Hypertension type:
--- NOTE | 2018-02-11 21:12 | ECG ---
Date Performed: 02/10/2018 Time Performed: 22:34:35 PTAGE: 72 years EKG: SINUS BRADYCARDIA ARTIFACT ABNORMAL RHYTHM ECG Since the PREVIOUS TRACING , no significant change noted DOCTOR: Young Smith Interpretating Date/Time 02/11/2018 21:12:02
--- NOTE | 2018-02-11 21:39 | ECG ---
Date Performed: 02/10/2018 Time Performed: 12:55:21 PTAGE: 72 years EKG: SINUS BRADYCARDIA MARKED LEFT AXIS DEVIATION INCOMPLETE RIGHT BUNDLE BRANCH BLOCK ABNORMAL ECG PREVIOUS TRACING : 07/17/2014 09.18 Since the previous tracing, no significant change noted DOCTOR: Young Smith Interpretating Date/Time 02/11/2018 21:39:08
[2018-02-12] MEDS ORDERED: Isosorbide Mononitrate 60 MG ER 24HR Tablet (Imdur) PO SCH (07:00)
== END 2018-02-11 15:03 | disposition home or self-care (01) ==
LOC: NEPC 12:11 → NEDA 12:11 → NEPFCDU 17:00 → HCIS 02-11 09:00
PROVIDERS: ADMIT Hospitalist; ATTEND Hospitalist